=== PATIENT | female | born 1965 | race Caucasian/White ===

== ENCOUNTER 2017-02-16 14:13 | Emergency (ER) | payer OTHER ==
--- NOTE | 2017-02-16 15:24 | DIAGNOSTIC IMAGING REPORT ---
PROCEDURE: XR SOFT TISSUE NECK INDICATION: DIFFICULTY BREATHING TECHNIQUE: Two views of the neck for soft tissues. COMPARISON: None. FINDINGS: Prevertebral soft tissues are normal thickness. No significant submandibular soft tissue swelling. Epiglottis appears normal. The adenoids and tonsils appear normal. Patent airway. Trachea appears midline. No unusual radiodensities. No abnormal calcifications. The visible cervical spine appears intact with mild degenerative changes. IMPRESSION: 1. Normal neck soft tissues.
--- NOTE | 2017-02-16 17:19 | ED NURSING NOTES ---
Clinical Report - Nurses [place] [address] [place] [address] 02/16/2017 14:15 Patient: CATY LYNN TRIAGE Triage time 1415. Acuity: LEVEL 2. Chief Complaint: COUGH. Alert. No acute distress. SEPSIS SCREEN: Sepsis Screen. Negative (no infection suspected/documented). TANNER COMA SCORE: [place] Coma Scale: 15- eyes open spontaneously (4); best verbal response- oriented x 4 (5); best motor response- obeys commands (6). --14:35 Rohini Crum R.N. 14:17 02/16/17. BP: 119/57. HR: 80. RR: 15. O2 saturation: 98% on room air. Temp: 98.5 F. Pain level now: 0/10. --14:35 Rohini Crum R.N. Weight: 63.9 kg stated. Height/Length: 64 inches Per Patient. BMI: 24.2. --14:17 Rohini Crum R.N. Medications None. --14:20 Rohini Crum R.N. Allergies No Known Drug Allergy. --14:20 Rohini Crum R.N. Medication/allergy information source: the patient. --14:35 Rohini Crum R.N. History Arrived by private vehicle. Historian: patient. Accompanied by family. Primary physician (Dr. White). ( Pt went to primary today to get blood results and as to address the "spasms in the back of her throat" "this problem of knowing that the top part of her throat closes up" usually brought upon coughing, pt admits to being sick for the past couple of weeks with a productive cough (clear), has gone to the doctor multiple times currently being tested for "whooping cough". Pt states that feels better when she "calms down"). This started today. This is a recurrent problem. Symptoms are constant and still present (pt states has been sick a couple). She has had a nasal discharge, chills, sinus pain and difficulty breathing. She has not had fatigue. Denies muscle aches. No headache or photophobia. Treatment INHALATION THERAPIST: (vapor). PAST MEDICAL HX: Immunizations: up-to-date. Last normal menstrual period was 3 weeks ago- weeks. Sexual history - sexually active. SOCIAL HX: Former smoker, end date 2015. Occasional alcohol use. History of heavy drug use: marijuana. Recently used drugs yesterday. (Pain). No infectious disease exposure. ABUSE ASSESSMENT: No report of abuse. SELF HARM ASSESSMENT: A self harm assessment was performed. The patient answered "no" to the question "Do you have thoughts of harming or killing yourself?" and "Have you recently had thoughts about harming or killing others?". FALL RISK ASSESSMENT: Fall risk assessment completed. No fall risk identified. NUTRITIONAL RISK ASSESSMENT: The nutritional risk assessment revealed no deficiencies. FUNCTIONAL ASSESSMENT: Functional assessment: no impairments noted. LEARNING NEEDS ASSESSMENT: The learning needs assessment revealed no barriers. SKIN INTEGRITY ASSESSMENT: Skin integrity risk assessment completed. No skin integrity risk identified. --14:35 Rohini Crum R.N. PROBLEMS: Abdominal Pain. Renal Colic. Immunizations. LNMP - Last Normal Menstrual Period. Anxiety Reaction. Nephrolithiasis. --14:20 Rohini Crum R.N. 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 --14:34 Rohini Crum R.N. ADDITIONAL SURGERIES: Lithotripsy. Tonsillectomy. Tubal Ligation. --14:20 Rohini Crum R.N. Interventions ID band on patient. --14:35 Rohini Crum R.N. PHYSICAL ASSESSMENT Ambulatory to room. GENERAL / NEURO / PSYCH: Alert. Oriented X 4. Appears in no acute distress. Appears anxious. HEENT: Pupils equal, round and reactive to light. Ears within normal limits. Mouth within normal limits upon inspection. Voice within normal limits. Mucous membranes are pink. RESPIRATORY: Respirations not labored. The patient can speak in full sentences. Breath sounds within normal limits. CVS: Capillary refill less than 2 seconds. SKIN: Skin is warm and dry. Normal skin turgor. --14:26 Rohini Crum R.N. NURSING PROGRESS NOTES 14:18 02/16/2017 Site #1 started via IV with an 18g angiocath; one attempt. Blood drawn: rainbow set. Labeled in the presence of the patient and sent to the lab. Saline lock flushed. --14:28 Rohini Crum R.N. 14:26 02/16/17. HR: 84. RR: 18. O2 saturation: 100%. Pain level now: 12/17. --14:37 Rohini Crum R.N. The initial plan of care for this patient has been created This plan of care was discussed with the patient. Pulse oximeter and NIBP monitor placed on patient. Patient ID band checked for patient name, birthdate and medical record number: patient confirmed. Blood samples drawn from the left antecubital space by nurse per protocol ; labeled in presence of the patient and sent to lab: rainbow set. Patient gowned. Warming measures: blanket applied. Reassurance given. ( Pt also states having pain across her chest area from coughin). Two patient identifiers checked. Call light placed in reach. Side rails up x 1. Bed placed in lowest position. Brakes of bed on. Patient ready for evaluation- chart flagged. --14:37 Rohini Crum R.N. 15:29 02/16/2017 Depo-Medrol IM 80 mg given. Given in the right gluteus margaret. Allergies verified and confirmed 5 rights. --15:29 Rohini Crum R.N. Reassurance given. The patient is calm. Overall patient status is the same- she states feels the same. HEENT: The patient reports sore throat. RESPIRATORY: The patient reports cough. Denies difficulty breathing. CVS: Denies chest pain. Patient identifiers checked. Call light placed in reach. Patient placed in chair. Brakes of chair on. --15:33 Rohini Crum R.N. 15:31 02/16/17. BP: 114/61. HR: 78. RR: 18. O2 saturation: 100% on room air. Temp: 98.3 F. Pain level now: 12/17. --15:33 Rohini Crum R.N. 16:09 02/16/2017 Phenergan IV 25 mg (HIGH ALERT MEDICATION, NOW) was refused by patient because of Patient feels like shes is nauseated because of what is in her throat not due to abd pain. Isabela Low --16:09 Isabela LowRemigio 16:36 02/16/17. BP: 97/37 (regular adult cuff) taken on the left arm, via an automated monitor, while sitting. HR: 78. RR: 12. O2 saturation: 100%. --16:37 Rohini Crum R.N. The patient is calm and resting quietly. Overall patient status is improved- she states feels better. RESPIRATORY: The patient reports cough. --16:37 Rohini Crum R.N. 16:37 02/16/2017 Depo-Medrol IM Response: no adverse reaction. --17:37 Rohini Crum R.N. DISPOSITION / DISCHARGE Condition at departure: improved and stable. The goals identified in the patient's plan of care were met. No learning barriers present. Discharge instructions provided and reviewed with the patient. Treatments reviewed. Reviewed referral to an ear, nose, and throat specialist (associate entertainment editor). Reviewed need to stop smoking. Patient verbalized understanding. Written instructions provided in Turkish. No medication instructions, diet instructions or activity restrictions. The patient was discharged by the physician. She was discharged home and accompanied by spouse. She left the Emergency Department ambulatory. Patient driving. FALL RISK ASSESSMENT: Fall risk assessment completed. No fall risk identified. TANNER COMA SCORE: [place] Coma Scale: 15- eyes open spontaneously (4); best verbal response- oriented x 4 (5); best motor response- obeys commands (6). --17:33 Rohini Crum R.N. 17:25 02/16/17. BP: 98/54. HR: 61. RR: 15. O2 saturation: 100%. Temp: 97.6 F. Pain level now: 12/17. --17:33 Rohini Crum R.N. Locked/Released at 02/16/2017 17:37 by Rohini Crum R.N.
--- NOTE | 2017-02-16 17:19 | ED CLINICAL REPORT ---
Clinical Report - Physicians/Mid Levels [facility] [address] [place] [address] 02/16/2017 14:15 Patient: CATY LYNN Time Seen: 14:23; initial patient contact. Arrived- By private vehicle. Historian- patient. HISTORY OF PRESENT ILLNESS Chief Complaint: DYSPNEA. This started today and is still present (persistent). It has been intermittent. The dyspnea is described as moderate and is worsened by cough and is improved by rest. The patient has had a cough and chest pain. No sputum production, fever, sweating episodes, wheezing or chills. No dyspnea on exertion, chest discomfort, calf pain, foot swelling or orthopnea. No dizziness or palpitations. Similar symptoms previously: Many times. Recent medical care: The patient was seen recently in the office. ( Seen by PCP today for lab results, complained of the current complaint and was sent to the ED. She has been seen for this issue multiple times and she claims it is a congenital issue in her throat. Has undergone a scope in the past, no Tx.). REVIEW OF SYSTEMS No sore throat, nasal discharge, sinus drainage, nausea or vomiting. All systems otherwise negative, except as recorded above. PAST HISTORY Abdominal Pain. Renal Colic. Anxiety Reaction. Nephrolithiasis. 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 SURGERIES: Lithotripsy. Tonsillectomy. Tubal Ligation. SOCIAL HISTORY Former smoker (electronic cigarrette). Occasional alcohol use. History of drug use: marijuana. ADDITIONAL NOTES The nursing notes have been reviewed. PHYSICAL EXAM Vital Signs: 02/16/2017 14:17 BP: 119/57. HR: 80. RR: 15. O2 saturation: 98%. Temp: 98.5 F. Pain level now: 0/10. Have been reviewed. Hypotensive. Heart rate normal. Respiratory rate normal. Temperature normal. Oxygen saturation normal. Appearance: Alert. No acute distress. Eyes: Eyes normal inspection. ENT: Pharynx normal. Uvula midline. Neck: Trachea is not deviated. Normal inspection. No mass in the neck. No thyromegaly or lymphadenopathy. CVS: Normal heart rate and rhythm. Heart sounds normal. Respiratory: No respiratory distress. Breath sounds normal. Skin: Normal skin color. No rash. Neuro: Oriented X 3. LABS, X-RAYS, AND EKG Soft Tissue Neck X-rays: (1. Normal neck soft tissues.). Views: lateral and rebel-posterior. Technique: good. The X-rays were independently viewed by me, interpreted by the radiologist and discussed with the radiologist. Prior films were not available for comparison. Interpretation time: 15:25. PROGRESS AND PROCEDURES Course of Care: Depo-Medrol 80mg IM given. The patient's symptoms are now gone. Physical exam findings are improved. Disposition: Discharged home in good and improved condition. Condition: good. CLINICAL IMPRESSION Chronic cough INSTRUCTIONS Do not smoke. Seek medical help to quit smoking. Your Current Medications: CONTINUE TAKING THE FOLLOWING MEDICATIONS: None*. Follow-up: Screening today revealed the patient's blood pressure to be in the normal range. Follow-up with: Chase Catalan MD, ENT, , [facility], [address], [address], [place], [address] Follow up in about two days. Call for an appointment. (Electronically signed by Juan Pablo Patterson Dr. 02/16/2017 17:25)
--- NOTE | 2017-02-16 17:19 | ED CLINICAL REPORT ---
Clinical Report - Physicians/Mid Levels [facility] [address] [place] [address] 02/16/2017 14:15 Patient: CATY LYNN Time Seen: 14:23; initial patient contact. Arrived- By private vehicle. Historian- patient. HISTORY OF PRESENT ILLNESS Chief Complaint: DYSPNEA. This started today and is still present (persistent). It has been intermittent. The dyspnea is described as moderate and is worsened by cough and is improved by rest. The patient has had a cough and chest pain. No sputum production, fever, sweating episodes, wheezing or chills. No dyspnea on exertion, chest discomfort, calf pain, foot swelling or orthopnea. No dizziness or palpitations. Similar symptoms previously: Many times. Recent medical care: The patient was seen recently in the office. ( Seen by PCP today for lab results, complained of the current complaint and was sent to the ED. She has been seen for this issue multiple times and she claims it is a congenital issue in her throat. Has undergone a scope in the past, no Tx.). REVIEW OF SYSTEMS No sore throat, nasal discharge, sinus drainage, nausea or vomiting. All systems otherwise negative, except as recorded above. PAST HISTORY Abdominal Pain. Renal Colic. Anxiety Reaction. Nephrolithiasis. 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 SURGERIES: Lithotripsy. Tonsillectomy. Tubal Ligation. SOCIAL HISTORY Former smoker (electronic cigarrette). Occasional alcohol use. History of drug use: marijuana. ADDITIONAL NOTES The nursing notes have been reviewed. PHYSICAL EXAM Vital Signs: 02/16/2017 14:17 BP: 119/57. HR: 80. RR: 15. O2 saturation: 98%. Temp: 98.5 F. Pain level now: 0/10. Have been reviewed. Hypotensive. Heart rate normal. Respiratory rate normal. Temperature normal. Oxygen saturation normal. Appearance: Alert. No acute distress. Eyes: Eyes normal inspection. ENT: Pharynx normal. Uvula midline. Neck: Trachea is not deviated. Normal inspection. No mass in the neck. No thyromegaly or lymphadenopathy. CVS: Normal heart rate and rhythm. Heart sounds normal. Respiratory: No respiratory distress. Breath sounds normal. Skin: Normal skin color. No rash. Neuro: Oriented X 3. LABS, X-RAYS, AND EKG Soft Tissue Neck X-rays: (1. Normal neck soft tissues.). Views: lateral and rebel-posterior. Technique: good. The X-rays were independently viewed by me, interpreted by the radiologist and discussed with the radiologist. Prior films were not available for comparison. Interpretation time: 15:25. PROGRESS AND PROCEDURES Course of Care: Depo-Medrol 80mg IM given. The patient's symptoms are now gone. Physical exam findings are improved. Disposition: Discharged home in good and improved condition. Condition: good. CLINICAL IMPRESSION Chronic cough INSTRUCTIONS Do not smoke. Seek medical help to quit smoking. Your Current Medications: CONTINUE TAKING THE FOLLOWING MEDICATIONS: None*. Follow-up: Screening today revealed the patient's blood pressure to be in the normal range. Follow-up with: Chase Catalan MD, ENT, , [facility], [address], [address], [place], [address] Follow up in about two days. Call for an appointment. (Electronically signed by Juan Pablo Patterson Dr. 02/16/2017 17:25)
--- NOTE | 2017-02-16 17:19 | ED ORDER SUMMARY ---
..... Patient: CATY LYNN OrderSheet [facility] VisitID: [id number] [address] [place] [address] 51y, F Registration Date/Time: 02/16/2017 ORDER SHEET Weight: 63.9 kg (stated) Allergies: No Known Drug Allergy GENERAL ORDERS: Soft Tissue Neck Urgent (14:54 02/16/2017 Patricia Gama) (Ack 14:55 Micheal) (15:13 Micheal) MEDICATION ORDERS: Depo-Medrol IM 80 mg (NOW) (14:53 02/16/2017 Patricia Gama) (15:29 Rakel R.N.) Phenergan IV 25 mg (HIGH ALERT MEDICATION, NOW) (15:18 02/16/2017 Patricia Gama) (16:09 Mounika R.N.) IV FLUIDS: ORDER SHEET NOTES: [Electronically signed by Juan Pablo Patterson Dr. (17:25 02/16/2017)] [Electronically signed by Rohini Crum R.N. (17:37 02/16/2017)] [Electronically locked/signed by Rohini Crum R.N. (17:37 02/16/2017)]
--- NOTE | 2017-02-16 17:19 | ED ORDER SUMMARY ---
..... Patient: CATY LYNN OrderSheet [facility] VisitID: [id number] [address] [place] [address] 51y, F Registration Date/Time: 02/16/2017 ORDER SHEET Weight: 63.9 kg (stated) Allergies: No Known Drug Allergy GENERAL ORDERS: Soft Tissue Neck Urgent (14:54 02/16/2017 Patricia Gama) (Ack 14:55 Micheal) (15:13 Micheal) MEDICATION ORDERS: Depo-Medrol IM 80 mg (NOW) (14:53 02/16/2017 Patricia Gama) (15:29 Rakel R.N.) Phenergan IV 25 mg (HIGH ALERT MEDICATION, NOW) (15:18 02/16/2017 Patricia Gama) (16:09 Mounika R.N.) IV FLUIDS: ORDER SHEET NOTES: [Electronically signed by Juan Pablo Patterson Dr. (17:25 02/16/2017)] [Electronically signed by Rohini Crum R.N. (17:37 02/16/2017)] [Electronically locked/signed by Rohini Crum R.N. (17:37 02/16/2017)]
--- NOTE | 2017-02-16 17:38 | ED DISCHARGE INSTRUCTIONS ---
Patient: CATY LYNN General Instructions [facility] VisitID: [id number] [place] [address] 51y, F Registration Date/Time: 02/16/2017 Chronic cough INSTRUCTIONS Do not smoke. Seek medical help to quit smoking. Your Current Medications: CONTINUE TAKING THE FOLLOWING MEDICATIONS: None*. Follow-up: Screening today revealed the patient's blood pressure to be in the normal range. Follow-up with: Chase Catalan MD, ENT, , [facility], [address], [address], [place], [address] Follow up in about two days. Call for an appointment. ADDITIONAL INFORMATION Cough, Chronic, Uncertain Cause(Adult) Everyone has had a cough as part of the common cold, flu or bronchitis. This kind of cough occurs along with an achy feeling, low grade fever, nasal and sinus congestion, scratchy or sore throat. This gets better in two to three weeks. A cough that lasts longer than three weeks may is usually due to other causes. Based on your exam today, the exact cause of your cough is not certain. Below are some of the common causes for persistent cough. If the cough does not improve over the next two weeks, further testing may be needed. Follow up with your doctor as directed. Smokers Cough worse. The cough is from irritation in the air passages. Talk to your doctor about quitting. Nicotine patches, gum, inhaler, nasal spray or another method may make it easier. Post-Nasal Drip A cough that is worse at night may be due to postnasal drip. Excess mucus in the nose drains from the back of your nose to your throat and triggers the cough reflex. This may be due to a sinus infection or allergy. Common allergens include: dust, smoke, pollen mold, pets, cleaning agents, room deodorizers and chemical fumes. Over the counter antihistamines/decongestant may be helpful for allergies. A sinus infection requires antibiotic treatment. See your doctor if symptoms continue. Medicines Certain prescribed medicines can cause a chronic cough in some people: GIOVANI inhibitors for high blood pressure. These include Lotensin (benazepril), Capoten (captopril), Vasotec (enalapril), Monopril (fosinopril), Prinivil and Zestril (lisinopril), Accupril (quinapril), Altace (ramipril), and others. Beta-blockers for high blood pressure and other conditions. These include Inderal (propranolol), Tenormin (atenolol), Lopressor (metoprolol), Corgard (nadolol), and others. Let your doctor know if you are taking any of these. Asthma Cough may be the only sign of mild asthma. Your doctor can do lung testing to find out if this is the cause. Your response to a trial of asthma medicines may also help make the diagnosis. Acid Reflux (Heartburn) The esophagus is a tube that carries food from the mouth to the stomach.A valve at its lower endprevents stomach acids from flowing upward. If this valve does not work properly, acid from the stomach enters the esophagus. This may cause a burning pain in the upper abdomen or lower chest, belching, or cough. Symptoms are often worse when lying flat. Avoid eating or drinking before bedtime. Try using extra pillows to raise your upper body or place 4-inch blocks under the head of your bed. You may try an [id number] antacid (Tums or Mylanta) or an acid-blocking medicine (Pepcid AC, Tagamet HB, Zantac 75, or Prilosec OTC). Stronger medicines for this condition can be prescribed by your doctor. Follow Up with your doctor as directed if your cough does not improve over the next2 weeks. Further testing may be needed. [NOTE: If an x-ray was made, another specialist will review it. You will be notified of any new findings that may affect your care.] Get Prompt Medical Attention if any of the following occur: Wheezing or difficulty breathing Fever of 100.4F (38C) or higher, or as directed by your healthcare provider Unexpected weight loss Coughing up large amounts of colored sputum Coughing up blood Night sweats (sheets and pajamas get soaking wet) How To Quit Smoking Smoking is one of the hardest habits to break. About half of all those who have ever smoked have been able to quit, and most of those (about 70%) who still smoke want to quit. Here are some of the best ways to stop smoking. Keep Trying: It takes most smokers about 8 tries before they are finally able to fully quit. So, the more often you try and fail, the better your chance of quitting the next time! So, don't give up! Go Cold Theresa: Most ex-smokers quit cold turkey. Trying to cut back gradually doesn't seem to work as well, perhaps because it continues the smoking habit. Also, it is possible to fool yourself by inhaling more while smoking fewer cigarettes. This results in the same amount of nicotine in your body! Get Support: Support programs can make an important difference, especially for the heavy smoker. These groups offer lectures, methods to change your behavior and peer support. Call the free national Quitline for more information. 080-TBQN-PZK (771-312-2641). Low-cost or free programs are offered by many hospitals, local chapters of the [place] [employer] (108-508-9542) and the [place] [employer] (107-092-0399). Support at home is important too. Non-smokers can help by offering praise and encouragement. If the smoker fails to quit, encourage them to try again! Giaj-Zig-Dhxksyd Medicines: For those who can't quit on their own, Nicotine Replacement Therapy (NRT) may make quitting much easier. Certain aids such as the nicotine patch, gum and lozenge are available without a prescription. However, it is best to use these under the guidance of your doctor. The skin patch provides a steady supply of nicotine to the body. Nicotine gum and lozenge gives temporary bursts of low levels of nicotine. Both methods take the edge off the craving for cigarettes. WARNING: If you feel symptoms of nicotine overdose, such as nausea, vomiting, dizziness, weakness, or fast heartbeat, stop using these and see your doctor. Prescription Medicines: After evaluating your smoking patterns and prior attempts at quitting, your doctor may offer a prescription medicine such as bupropion (Zyban, Wellbutrin), varenicline (Chantix, Champix), a niocotine inhaler or nasal spray. Each has its unique advantage and side effects which your doctor can review with you. Health Benefits Of Quitting: The benefits of quitting start right away and keep improving the longer you go without smokin minutes: blood pressure and pulse return to normal 8 hours: oxygen levels return to normal 2 days: ability to smell and taste begins to improve as damaged nerves start to regrow 2-3 weeks: circulation and lung function improves 1-9 months: decreased cough, congestion and shortness of breath; less tired 1 year: risk of heart attack decreases by half 5 years: risk of lung cancer decreases by half; risk of stroke becomes the same as a non-smoker For information about how to quit smoking, visit the following links: [employer] [place] , Clearing the Air, Quit Smoking Today - an online booklet. http://www.smokefree.gov/pubs/clearing_the_air.pdf Smokefree.gov http://smokefree.gov/ QuitNet http://www.quitnet.com/ You have been given the following additional information: Cough, Chronic, Uncertain Cause, (Adult) Smoking Cessation (Electronically signed by Juan Pablo Patterson Dr. 02/16/2017 17:25)
--- NOTE | 2017-02-16 17:38 | ED DISCHARGE INSTRUCTIONS ---
Patient: CATY LYNN General Instructions [facility] VisitID: [id number] [place] [address] 51y, F Registration Date/Time: 02/16/2017 Chronic cough INSTRUCTIONS Do not smoke. Seek medical help to quit smoking. Your Current Medications: CONTINUE TAKING THE FOLLOWING MEDICATIONS: None*. Follow-up: Screening today revealed the patient's blood pressure to be in the normal range. Follow-up with: Chase Catalan MD, ENT, , [facility], [address], [address], [place], [address] Follow up in about two days. Call for an appointment. ADDITIONAL INFORMATION Cough, Chronic, Uncertain Cause(Adult) Everyone has had a cough as part of the common cold, flu or bronchitis. This kind of cough occurs along with an achy feeling, low grade fever, nasal and sinus congestion, scratchy or sore throat. This gets better in two to three weeks. A cough that lasts longer than three weeks may is usually due to other causes. Based on your exam today, the exact cause of your cough is not certain. Below are some of the common causes for persistent cough. If the cough does not improve over the next two weeks, further testing may be needed. Follow up with your doctor as directed. Smokers Cough worse. The cough is from irritation in the air passages. Talk to your doctor about quitting. Nicotine patches, gum, inhaler, nasal spray or another method may make it easier. Post-Nasal Drip A cough that is worse at night may be due to postnasal drip. Excess mucus in the nose drains from the back of your nose to your throat and triggers the cough reflex. This may be due to a sinus infection or allergy. Common allergens include: dust, smoke, pollen mold, pets, cleaning agents, room deodorizers and chemical fumes. Over the counter antihistamines/decongestant may be helpful for allergies. A sinus infection requires antibiotic treatment. See your doctor if symptoms continue. Medicines Certain prescribed medicines can cause a chronic cough in some people: GIOVANI inhibitors for high blood pressure. These include Lotensin (benazepril), Capoten (captopril), Vasotec (enalapril), Monopril (fosinopril), Prinivil and Zestril (lisinopril), Accupril (quinapril), Altace (ramipril), and others. Beta-blockers for high blood pressure and other conditions. These include Inderal (propranolol), Tenormin (atenolol), Lopressor (metoprolol), Corgard (nadolol), and others. Let your doctor know if you are taking any of these. Asthma Cough may be the only sign of mild asthma. Your doctor can do lung testing to find out if this is the cause. Your response to a trial of asthma medicines may also help make the diagnosis. Acid Reflux (Heartburn) The esophagus is a tube that carries food from the mouth to the stomach.A valve at its lower endprevents stomach acids from flowing upward. If this valve does not work properly, acid from the stomach enters the esophagus. This may cause a burning pain in the upper abdomen or lower chest, belching, or cough. Symptoms are often worse when lying flat. Avoid eating or drinking before bedtime. Try using extra pillows to raise your upper body or place 4-inch blocks under the head of your bed. You may try an [id number] antacid (Tums or Mylanta) or an acid-blocking medicine (Pepcid AC, Tagamet HB, Zantac 75, or Prilosec OTC). Stronger medicines for this condition can be prescribed by your doctor. Follow Up with your doctor as directed if your cough does not improve over the next2 weeks. Further testing may be needed. [NOTE: If an x-ray was made, another specialist will review it. You will be notified of any new findings that may affect your care.] Get Prompt Medical Attention if any of the following occur: Wheezing or difficulty breathing Fever of 100.4F (38C) or higher, or as directed by your healthcare provider Unexpected weight loss Coughing up large amounts of colored sputum Coughing up blood Night sweats (sheets and pajamas get soaking wet) How To Quit Smoking Smoking is one of the hardest habits to break. About half of all those who have ever smoked have been able to quit, and most of those (about 70%) who still smoke want to quit. Here are some of the best ways to stop smoking. Keep Trying: It takes most smokers about 8 tries before they are finally able to fully quit. So, the more often you try and fail, the better your chance of quitting the next time! So, don't give up! Go Cold [place]: Most ex-smokers quit cold turkey. Trying to cut back gradually doesn't seem to work as well, perhaps because it continues the smoking habit. Also, it is possible to fool yourself by inhaling more while smoking fewer cigarettes. This results in the same amount of nicotine in your body! Get Support: Support programs can make an important difference, especially for the heavy smoker. These groups offer lectures, methods to change your behavior and peer support. Call the free national Quitline for more information. 395-FOED-NLA (362-144-5138). Low-cost or free programs are offered by many hospitals, local chapters of the [place] [employer] (686-236-4199) and the [place] [employer] (431-064-7683). Support at home is important too. Non-smokers can help by offering praise and encouragement. If the smoker fails to quit, encourage them to try again! Tcev-Jhs-Efpdvjs Medicines: For those who can't quit on their own, Nicotine Replacement Therapy (NRT) may make quitting much easier. Certain aids such as the nicotine patch, gum and lozenge are available without a prescription. However, it is best to use these under the guidance of your doctor. The skin patch provides a steady supply of nicotine to the body. Nicotine gum and lozenge gives temporary bursts of low levels of nicotine. Both methods take the edge off the craving for cigarettes. WARNING: If you feel symptoms of nicotine overdose, such as nausea, vomiting, dizziness, weakness, or fast heartbeat, stop using these and see your doctor. Prescription Medicines: After evaluating your smoking patterns and prior attempts at quitting, your doctor may offer a prescription medicine such as bupropion (Zyban, Wellbutrin), varenicline (Chantix, Champix), a niocotine inhaler or nasal spray. Each has its unique advantage and side effects which your doctor can review with you. Health Benefits Of Quitting: The benefits of quitting start right away and keep improving the longer you go without smokin minutes: blood pressure and pulse return to normal 8 hours: oxygen levels return to normal 2 days: ability to smell and taste begins to improve as damaged nerves start to regrow 2-3 weeks: circulation and lung function improves 1-9 months: decreased cough, congestion and shortness of breath; less tired 1 year: risk of heart attack decreases by half 5 years: risk of lung cancer decreases by half; risk of stroke becomes the same as a non-smoker For information about how to quit smoking, visit the following links: [employer] [place] , Clearing the Air, Quit Smoking Today - an online booklet. http://www.smokefree.gov/pubs/clearing_the_air.pdf Smokefree.gov http://smokefree.gov/ QuitNet http://www.quitnet.com/ You have been given the following additional information: Cough, Chronic, Uncertain Cause, (Adult) Smoking Cessation (Electronically signed by Juan Pablo Patterson Dr. 02/16/2017 17:25)
--- NOTE | 2017-02-16 17:38 | ED MAR SUMMARY ---
..... Medication Administration Record [facility] [address] [place] [address] Patient: CATY LYNN Visit ID: [id number] 51y, F Weight: 63.9 kg Height/Length: 64 in BMI: 24.2 ALLERGIES: No Known Drug Allergy Given 15:29 02/16/2017 Rohini Crum, RCarlosNCarlos Medication Administered: DEPO-MEDROL [IM], Dose: 80 mg IM. Medication Ordered: Depo-Medrol IM 80 mg (NOW).
--- NOTE | 2017-02-16 17:38 | ED MED RECONCILIATION SUMMARY ---
Patient: ANGELIKA LYNNFRANCISCO ANTOINEKRUPA Medication Reconciliation Report [facility] VisitID: [id number] [address] [place] [address] 51y, F Registration Date/Time: 02/16/2017 Weight: 63.9 kg Height/Length: 64 in. BMI: 24.2 ALLERGIES: No Known Drug Allergy The patient's Home Medications are listed below: NONE. The source(s) of the original Home Medication information: patient The following Medications were given to the patient in the Emergency Department: Depo-Medrol [IM] IM 80 mg, administered: 02/16/2017 3:29:00 PM The following Medications were prescribed to the patient: None.
--- NOTE | 2017-02-16 17:38 | ED MED RECONCILIATION SUMMARY ---
Patient: ANGELIKA LYNNFRANCISCO ANTOINEKRUPA Medication Reconciliation Report [facility] VisitID: [id number] [address] [place] [address] 51y, F Registration Date/Time: 02/16/2017 Weight: 63.9 kg Height/Length: 64 in. BMI: 24.2 ALLERGIES: No Known Drug Allergy The patient's Home Medications are listed below: NONE. The source(s) of the original Home Medication information: patient The following Medications were given to the patient in the Emergency Department: Depo-Medrol [IM] IM 80 mg, administered: 02/16/2017 3:29:00 PM The following Medications were prescribed to the patient: None.
--- NOTE | 2017-02-16 17:38 | ED MAR SUMMARY ---
..... Medication Administration Record [facility] [address] [place] [address] Patient: CATY LYNN Visit ID: [id number] 51y, F Weight: 63.9 kg Height/Length: 64 in BMI: 24.2 ALLERGIES: No Known Drug Allergy Given 15:29 02/16/2017 Rohini Crum, RCarlosNCarlos Medication Administered: DEPO-MEDROL [IM], Dose: 80 mg IM. Medication Ordered: Depo-Medrol IM 80 mg (NOW).
== END 2017-02-16 17:33 | disposition home or self-care (01) ==
LOC: ED SRH 14:13
DX: R05 Cough (principal); R06.00 Dyspnea, unspecified; Z87.891 Personal history of nicotine dependence
CPT/HCPCS: 90074